=== PATIENT | male | born 1985 | race Caucasian/White ===

== ENCOUNTER 2017-10-26 10:18 | Emergency (ER) | payer BC, OTHER | END 2017-10-26 11:27 | disposition home or self-care (01) | LOC: E/R 10:18 | DX: L03.115 Cellulitis of right lower limb (principal) | CPT/HCPCS: 99284 ==

== ENCOUNTER 2017-10-27 09:50 | Emergency (ER) | payer BC ==
[2017-10-27] MEDS: IBUPROFEN 600 MG TAB PO (10:36)
== END 2017-10-27 11:45 | disposition home or self-care (01) ==
LOC: FTE 09:50
DX: S82.891A Other fracture of right lower leg, initial encounter for closed fracture (principal); X58.XXXA Exposure to other specified factors, initial encounter; Y92.9 Unspecified place or not applicable
CPT/HCPCS: 29505; 73610-RT; 73630; 99283-25